=== PATIENT | male | born 1990 | race Caucasian/White ===

== ENCOUNTER 2017-11-11 10:16 | Emergency (ER) | payer OTHER ==
[~2017-11-11] VITALS: Ht 165.1 cm; Wt 62.6 kg
[2017-11-11 10:44] VITALS: BP 127/79
--- NOTE | 2017-11-11 11:24 | NUR ---
PT ESCORTED TO BED OF3.
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
[2017-11-11 12:14] VITALS: BP 136/89
== END 2017-11-11 12:14 | disposition home or self-care (01) ==
LOC: MED 10:16
DX: H00.014 Hordeolum externum left upper eyelid (principal)
CPT/HCPCS: 99283

== ENCOUNTER 2023-05-19 23:30 | Emergency (ER) | payer SELFPAY ==
[~2023-05-19] VITALS: Ht 170.2 cm; Wt 68.0 kg
[2023-05-19 23:30] VITALS: BP 116/88; PULSE 101; RESP 16; TEMP 98.1; O2SAT 98
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
== END 2023-05-20 00:33 ==
LOC: MED 23:30
DX: M79.662 Pain in left lower leg (principal); V49.88XA Car occupant (driver) (passenger) injured in other specified transport accidents, initial encounter; Y93.89 Activity, other specified; Y92.89 Other specified places as the place of occurrence of the external cause; Y99.8 Other external cause status
CPT/HCPCS: 99283